=== PATIENT | male | born 1945 | race Caucasian/White ===

== ENCOUNTER 2021-11-09 09:12 | Outpatient (CLI) | payer MEDICARE | END 2021-11-09 09:13 | disposition home or self-care (01) | LOC: CSHMRI 09:12 | PROVIDERS: ATTEND Neurological Surgery | DX: H81.10 Benign paroxysmal vertigo, unspecified ear (principal); I77.74 Dissection of vertebral artery; H74.8X3 Other specified disorders of middle ear and mastoid, bilateral | CPT/HCPCS: 70551 ==